=== PATIENT | female | born 1950 | race Caucasian/White ===

== ENCOUNTER 2018-01-03 07:10 | Day surgery (SDC) | payer MEDICARE, OTHER ==
[~2018-01-03] VITALS: Ht 157.5 cm; Wt 72.8 kg
[~2018-01-03 07:10] MED LIST: ASPI325EC PO; AZELASTINE137 MCG/0.; Daily Multiple1 EACH PO; ERGO50000 PO; ESOM20; GABA400 PO; LEVSOD75 PO; LIVALO4 MG PO; META800 PO; METO50ER PO; Nitrostat0.4 MG SL; VAGIFEM10 MCG VG; VALS80 PO; VITAMIN D35000 UNI1 PO
[2018-01-03] MEDS ORDERED: Aspir 8181 MG (07:41)
== END 2018-01-03 09:22 | disposition home or self-care (01) ==
LOC: ORSCSDS 07:10
PROVIDERS: Surgery
PROC: 0DB48ZX Excision of Esophagogastric Junction, Via Natural or Artificial Opening Endoscopic, Diagnostic (ICD-10-PCS; principal; 2018-01-03 08:30)
PROC: 0DB68ZX Excision of Stomach, Via Natural or Artificial Opening Endoscopic, Diagnostic (ICD-10-PCS; principal; 2018-01-03 08:30)
DX: K22.70 Barrett's esophagus without dysplasia (principal); I10 Essential (primary) hypertension; E03.9 Hypothyroidism, unspecified; E78.5 Hyperlipidemia, unspecified; I25.10 Atherosclerotic heart disease of native coronary artery without angina pectoris; J45.909 Unspecified asthma, uncomplicated; K21.9 Gastro-esophageal reflux disease without esophagitis; Z87.891 Personal history of nicotine dependence; Z79.82 Long term (current) use of aspirin; Z79.899 Other long term (current) drug therapy
CPT/HCPCS: 88305; 88342; J7120

== ENCOUNTER 2018-06-26 11:37 | Day surgery (SDC) | payer MEDICARE, OTHER ==
[~2018-06-26] VITALS: Ht 157.5 cm; Wt 70.6 kg
[~2018-06-26 11:37] MED LIST changes: +Aspir 8181 MG PO; +Flovent 44 mc10.6 GM INH; +Milk Thistle175 MG PO; +Multivitamin1 EAC1 PO; +Pepto-Bismol262 M1 PO
== END 2018-06-26 14:00 | disposition home or self-care (01) ==
LOC: ORSCSDS 11:37
PROVIDERS: Internal Medicine Gastroenterology
PROC: 0DBE8ZX Excision of Large Intestine, Via Natural or Artificial Opening Endoscopic, Diagnostic (ICD-10-PCS; principal; 2018-06-26 13:00)
DX: R19.7 Diarrhea, unspecified (principal); K64.8 Other hemorrhoids; K57.30 Diverticulosis of large intestine without perforation or abscess without bleeding; I10 Essential (primary) hypertension; E03.9 Hypothyroidism, unspecified; E78.5 Hyperlipidemia, unspecified; K21.9 Gastro-esophageal reflux disease without esophagitis; Z87.891 Personal history of nicotine dependence; Z79.899 Other long term (current) drug therapy
CPT/HCPCS: J7120

== ENCOUNTER → 2019-08-05 | Outpatient (CLI) | payer MEDICARE, OTHER ==
[2019-08-05 10:26] LABS: BASOPHILS ABSOLUTE AUTO 0.02 K/mm3 (0.00-0.23); BASOPHILS PERCENT AUTO 1 % (0-2); EOSINOPHILS ABSOLUTE AUTO 0.24 K/mm3 (0.00-0.68); EOSINOPHILS PERCENT AUTO 6 % (0-6); Hemoglobin 12.1 g/dL (11.5-16.0); IMMATURE GRAN ABSOLUTE AUTO 0.01 K/mm3 (0.00-0.10); IMMATURE GRAN PERCENT AUTO 0 % (0-1); LYMPHOCYTES ABSOLUTE AUTO 0.92 K/mm3 (0.84-5.20); LYMPHOCYTES PERCENT AUTO 21 % (21-46); MONOCYTES ABSOLUTE AUTO 0.48 K/mm3 (0.16-1.47); MONOCYTES PERCENT AUTO 11 % (4-13); Mean Corpuscular HGB 32.9 pg (26.0-34.0); Mean Corpuscular HGB Conc 34.6 g/dL (31.5-36.5); Mean Corpuscular Volume 95 fL (80-100); Mean Platelet Volume 10.1 fL (9.1-12.4); NEUTROPHILS ABSOLUTE AUTO 2.64 K/mm3 (1.96-9.15); NEUTROPHILS PERCENT AUTO 61 % (41-73); Platelet Count 158 K/mm3 (150-400); RDW Coefficient Variation 11.7 % (11.7-14.2); Red Blood Cell Count 3.68 M/mm3 (3.80-5.20); White Blood Cell Count 4.31 K/mm3 (4.00-11.30)
[2019-08-05 10:40] LABS: Alanine Aminotransfer (ALT/SGP 49 U/L (12-78); Albumin, Blood 4.5 g/dL (3.4-5.0); Albumin/Globulin Ratio 1.4 (0.8-1.8); Alk Phos 82 U/L (40-126); Anion Gap 15 mmol/L (6-16); Aspartate Aminotrans (AST/SGOT 71 U/L (12-37); Bilirubin, Total 0.5 mg/dL (0.1-1.0); Blood Urea Nitrogen 9 mg/dL (8-24); Bun/Creatinine Ratio 9.7 (12.0-20.0); CO2, Blood 23 mmol/L (21-32); Calcium, Blood 9.1 mg/dL (8.5-10.1); Chloride, Blood 95 mmol/L (98-108); Creatinine, Blood 0.93 mg/dL (0.40-1.00); Globulin, Blood 3.3 g/dL (2.2-4.0); Glomerular Filtration Rate 59 (60-); Glucose, Blood 74 mg/dL (70-99); Sodium, Blood 133 mmol/L (136-145); Total Protein, Blood 7.8 g/dL (6.4-8.2)
[2019-08-05 10:41] LABS: Troponin I <0.017 ng/mL (0.000-0.040)
== END | disposition home or self-care (01) ==
LOC: LAB EV 10:22 → LAB SHORT 10:22
PROVIDERS: Physician Assistant
DX: R55 Syncope and collapse (principal)
CPT/HCPCS: 80053; 84484; 85025

== ENCOUNTER → 2019-12-03 | Outpatient (CLI) | payer MEDICARE, OTHER | END | disposition home or self-care (01) | LOC: LAB EV 13:36 → LAB SHORT 13:36 | DX: R05 Cough (principal) | CPT/HCPCS: U0003 ==

== ENCOUNTER 2020-06-19 07:52 | Emergency (ER) | payer MEDICARE, OTHER ==
[~2020-06-19] VITALS: Ht 162.6 cm; Wt 63.5 kg
[~2020-06-19 07:52] MED LIST changes: +CAND16
[2020-06-19 08:19] LABS: BASOPHILS ABSOLUTE AUTO 0.02 K/mm3 (0.00-0.23); BASOPHILS PERCENT AUTO 0 % (0-2); EOSINOPHILS ABSOLUTE AUTO 0.06 K/mm3 (0.00-0.68); EOSINOPHILS PERCENT AUTO 1 % (0-6); Hematocrit 31.9 % (33.0-51.0); Hemoglobin 10.7 g/dL (11.5-16.0); IMMATURE GRAN ABSOLUTE AUTO 0.02 K/mm3 (0.00-0.10); IMMATURE GRAN PERCENT AUTO 0 % (0-1); LYMPHOCYTES ABSOLUTE AUTO 1.49 K/mm3 (0.84-5.20); LYMPHOCYTES PERCENT AUTO 20 % (21-46); MONOCYTES ABSOLUTE AUTO 0.72 K/mm3 (0.16-1.47); MONOCYTES PERCENT AUTO 10 % (4-13); Mean Corpuscular HGB 33.6 pg (26.0-34.0); Mean Corpuscular HGB Conc 33.5 g/dL (31.5-36.5); Mean Corpuscular Volume 100 fL (80-100); NEUTROPHILS ABSOLUTE AUTO 5.18 K/mm3 (1.96-9.15); NEUTROPHILS PERCENT AUTO 69 % (41-73); Platelet Count 166 K/mm3 (150-400); RDW Coefficient Variation 11.9 % (11.7-14.2); RDW Standard Deviation 43.8 fL (35.1-46.3); Red Blood Cell Count 3.18 M/mm3 (3.80-5.20); White Blood Cell Count 7.49 K/mm3 (4.00-11.30)
[2020-06-19 08:38] LABS: Alanine Aminotransfer (ALT/SGP 28 U/L (12-78); Albumin, Blood 3.7 g/dL (3.4-5.0); Albumin/Globulin Ratio 0.9 (0.8-1.8); Alk Phos 97 U/L (50-136); Anion Gap 9 mmol/L (6-16); Aspartate Aminotrans (AST/SGOT 44 U/L (12-37); Bilirubin, Total 0.8 mg/dL (0.1-1.0); Blood Urea Nitrogen 9 mg/dL (8-24); Bun/Creatinine Ratio 11.5 (12.0-20.0); CO2, Blood 25 mmol/L (21-32); Calcium, Blood 8.9 mg/dL (8.5-10.1); Chloride, Blood 100 mmol/L (98-108); Creatinine, Blood 0.79 mg/dL (0.40-1.00); Glomerular Filtration Rate >60 (60-); Glucose, Blood 77 mg/dL (70-99); Potassium, Blood 3.8 mmol/L (3.5-5.5); Sodium, Blood 134 mmol/L (136-145); Total Protein, Blood 7.7 g/dL (6.4-8.2); Troponin I <0.015 ng/mL (0.000-0.040)
[2020-06-19] MEDS ORDERED: Norco 5-325 Ta1 EACH PO (13:16)
== END 2020-06-19 13:29 | disposition home or self-care (01) ==
LOC: ER 07:52
PROVIDERS: Emergency Medicine
DX: R07.9 Chest pain, unspecified (principal); Z88.0 Allergy status to penicillin; Z88.6 Allergy status to analgesic agent; Z88.1 Allergy status to other antibiotic agents; Z88.8 Allergy status to other drugs, medicaments and biological substances; Z88.5 Allergy status to narcotic agent; Z88.7 Allergy status to serum and vaccine; Z79.82 Long term (current) use of aspirin; Z87.891 Personal history of nicotine dependence; Z79.899 Other long term (current) drug therapy; W01.190A Fall on same level from slipping, tripping and stumbling with subsequent striking against furniture, initial encounter
CPT/HCPCS: 36415; 71260; 80053; 84484; 85025; 93005; 93010; 96374; 96375; 96376; 99284-25; J2060; J2405; J3010; J7030; Q9967

== ENCOUNTER 2020-06-28 10:58 | Inpatient (IN) | payer MEDICARE, OTHER ==
[~2020-06-28] VITALS: Ht 157.5 cm; Wt 67.8 kg
[~2020-06-28 10:58] MED LIST changes: -CAND16; +CAND16 PO; +Norco 5-325 Ta1 EACH PO; +VITAMIN D31000 UNI1 PO; -VITAMIN D35000 UNI1 PO
[2020-06-28 11:40] LABS: BASOPHILS ABSOLUTE AUTO 0.01 K/mm3 (0.00-0.23); BASOPHILS PERCENT AUTO 0 % (0-2); EOSINOPHILS ABSOLUTE AUTO 0.04 K/mm3 (0.00-0.68); EOSINOPHILS PERCENT AUTO 1 % (0-6); Hematocrit 31.7 % (33.0-51.0); Hemoglobin 10.6 g/dL (11.5-16.0); IMMATURE GRAN ABSOLUTE AUTO 0.02 K/mm3 (0.00-0.10); IMMATURE GRAN PERCENT AUTO 0 % (0-1); LYMPHOCYTES ABSOLUTE AUTO 0.92 K/mm3 (0.84-5.20); LYMPHOCYTES PERCENT AUTO 14 % (21-46); MONOCYTES ABSOLUTE AUTO 0.69 K/mm3 (0.16-1.47); MONOCYTES PERCENT AUTO 10 % (4-13); Mean Corpuscular HGB 33.7 pg (26.0-34.0); Mean Corpuscular HGB Conc 33.4 g/dL (31.5-36.5); Mean Corpuscular Volume 101 fL (80-100); NEUTROPHILS ABSOLUTE AUTO 5.09 K/mm3 (1.96-9.15); NEUTROPHILS PERCENT AUTO 75 % (41-73); Platelet Count 186 K/mm3 (150-400); RDW Standard Deviation 43.5 fL (35.1-46.3); Red Blood Cell Count 3.15 M/mm3 (3.80-5.20); White Blood Cell Count 6.77 K/mm3 (4.00-11.30)
[2020-06-28 12:02] LABS: Alanine Aminotransfer (ALT/SGP 26 U/L (12-78); Albumin, Blood 3.7 g/dL (3.4-5.0); Albumin/Globulin Ratio 0.9 (0.8-1.8); Alk Phos 93 U/L (50-136); Anion Gap 9 mmol/L (6-16); Aspartate Aminotrans (AST/SGOT 38 U/L (12-37); Bilirubin, Total 0.5 mg/dL (0.1-1.0); Blood Urea Nitrogen 8 mg/dL (8-24); Bun/Creatinine Ratio 10.1 (12.0-20.0); CO2, Blood 24 mmol/L (21-32); Calcium, Blood 9.3 mg/dL (8.5-10.1); Chloride, Blood 102 mmol/L (98-108); Creatinine, Blood 0.79 mg/dL (0.40-1.00); Globulin, Blood 3.9 g/dL (2.2-4.0); Glomerular Filtration Rate >60 (60-); Glucose, Blood 80 mg/dL (70-99); Sodium, Blood 135 mmol/L (136-145); Total Protein, Blood 7.6 g/dL (6.4-8.2); Troponin I <0.015 ng/mL (0.000-0.040)
[2020-06-28] MEDS ORDERED: MONT10T PO (13:16)
[2020-06-28] MEDS ORDERED: ADVAIR HFA 230-28 GM INH (13:17)
[2020-06-28] MEDS ORDERED: METO50ER PO (13:18)
[2020-06-28] MEDS ORDERED: FLUTICASONE PRO16 GM (13:19)
[2020-06-28] MEDS ORDERED: IPRATROPIUM BRO30 ML (13:20)
--- NOTE | 2020-06-28 14:13 | NUR ---
Echocardiogram completed.
--- NOTE | 2020-06-28 18:06 | NUR ---
1535 RECEIVED PT TO RM 326 VIA GURNEY FROM ER. SLIDE TX TO BED D/T PAIN. PT ADMITTED FOR ATYPICAL CP. RECEIVED REPORT FROM EVANGELINA STOVER. PT HERE 8 DAYS AGO FOR SAME THING, REPORTING NOTHING MADE IT BETTER. NITRO TAKEN AT HOME WITH NO EFFECT WELL NITRO BID PLACED WITHOUT IMPROVEMENT. PT ALSO MEDICATED WITH FENTANYL WITH LITTLE TO NO EFFECT. PER REPORT FROM EVANGELINA, PT WANTING MORPHINE. TYLENOL ORDERED, BUT PT REFUSED. TROPONINS NEG TO PRESENT; MOST RECENT DRAWN NOT POSTED YET. PT RESTING QUIETLY HF, WITH AT BS. PT REQUESTED TO GO TO [facility], BUT STATED THAT WE WOULD HAVE TO CARRY HER. BSC PLACED; PT ABLE TO STAND AND PIVOT WITH 2P ASSIST. CARDIOLOGY CONSULT CALLED PER ORDERS. [facility] RECENTLY CALLED TO REPORT PT SCHEDULED FOR STRESS TEST IN AM. PT TO HAVE RESTING PART AT 0930 AND STRESS PART AT APPROX 1430 TOMORROW. PT OK TO EAT TONIGHT PER PROTOCOL, BUT PT DECLINED. ICE WATER GIVEN PER REQUEST. PT INFORMED OF PLAN OF CARE FOR TONIGHT AND TOMORROW. VERBALIZED UNDERSTANDING. DENIED FURTHER NEEDS. CALL LT IN REACH.
--- NOTE | 2020-06-28 22:44 | NUR ---
PT REQUESTING SLEEPING MEDICATION; DR GRIMES NOTIFIED WITH ORDERS MELATONIN 6MG, PO, QHS, INSOMNIA.
--- NOTE | 2020-06-29 03:52 | NUR ---
SHIFT SUMMARY: 70 Y/O FEMALE RESTED COMFORTABLY 1/2 SHIFT; PT C/O CHEST/NECK PAIN RATED 7/10 WITH MORPHINE SULPATE 2MG IVP X 2 GIVEN WITH GOOD RELIEF VOICED; PT APPEARED VERY CALM WHILE TALKING WITH THIS NURSE; TELEMETRY REFLECTS SINUS TACHYCARDIA AT 102 PER OCTOBER--PRIVATE CLIENT ADVISOR; HAPPY AND COOPERATIVE; PT VOICED SHE HAD LAST BM 1 WEEK AGO AND THAT IS NORMAL FOR HER--PT TAKING COLACE; NPO SINCE MIDNIGHT FOR HEART STRESS TEST TODAY; PTS LEGS ARE WEAK WITH PT HAVING SLIGHT DIFFICULTY [place] [facility] [place]; BED ALARM APPLIED FOR SAFETY; BED LOW POSITION WITH CALL LIGHT AT SIDE.
[2020-06-29 05:23] LABS: BASOPHILS ABSOLUTE AUTO 0.02 K/mm3 (0.00-0.23); BASOPHILS PERCENT AUTO 0 % (0-2); EOSINOPHILS ABSOLUTE AUTO 0.03 K/mm3 (0.00-0.68); EOSINOPHILS PERCENT AUTO 1 % (0-6); Hematocrit 28.6 % (33.0-51.0); Hemoglobin 9.1 g/dL (11.5-16.0); IMMATURE GRAN ABSOLUTE AUTO 0.02 K/mm3 (0.00-0.10); IMMATURE GRAN PERCENT AUTO 0 % (0-1); LYMPHOCYTES ABSOLUTE AUTO 1.19 K/mm3 (0.84-5.20); LYMPHOCYTES PERCENT AUTO 20 % (21-46); MONOCYTES PERCENT AUTO 15 % (4-13); Mean Corpuscular HGB Conc 31.8 g/dL (31.5-36.5); Mean Corpuscular Volume 101 fL (80-100); Mean Platelet Volume 9.8 fL (9.1-12.4); NEUTROPHILS ABSOLUTE AUTO 3.92 K/mm3 (1.96-9.15); NEUTROPHILS PERCENT AUTO 65 % (41-73); Platelet Count 154 K/mm3 (150-400); RDW Coefficient Variation 11.9 % (11.7-14.2); RDW Standard Deviation 44.1 fL (35.1-46.3); Red Blood Cell Count 2.84 M/mm3 (3.80-5.20); White Blood Cell Count 6.08 K/mm3 (4.00-11.30)
[2020-06-29 05:55] LABS: Anion Gap 11 mmol/L (6-16); Blood Urea Nitrogen 11 mg/dL (8-24); Bun/Creatinine Ratio 14.2 (12.0-20.0); CO2, Blood 23 mmol/L (21-32); Calcium, Blood 8.7 mg/dL (8.5-10.1); Chloride, Blood 100 mmol/L (98-108); Creatinine, Blood 0.77 mg/dL (0.40-1.00); Glomerular Filtration Rate >60 (60-); Glucose, Blood 89 mg/dL (70-99); Magnesium, Blood 1.5 mg/dL (1.6-2.4); Potassium, Blood 3.9 mmol/L (3.5-5.5); Sodium, Blood 134 mmol/L (136-145); Troponin I <0.015 ng/mL (0.000-0.040)
--- NOTE | 2020-06-29 14:32 | NUR ---
LEXISCAN COMPLETED. TOLERATED WELL. VSS.
[2020-06-29 15:27] LABS: CHOL/HDL RATIO 1.6; Cholesterol 128 mg/dL (50-200); HDL Cholesterol 81 mg/dL (>39); LDL/HDL RATIO 0.5; Low Density Lipoprotein Chol 39 mg/dL (0-110); Triglycerides 39 mg/dL (30-160); Very Low Density Lipoprot Chol 7 mg/dL (6-32)
--- NOTE | 2020-06-29 18:27 | NUR ---
SHIFT SUMMARY PT AWAKE AT START OF SHIFT, REPORTING THAT SHE DID NOT SLEEP MUCH LAST NIGHT. EVEN WITH HS MEDS ORDERED TO HELP. PT REPORTED ANXIETY AND STRESS. PT DID REPORT THAT SHE FELT BETTER TODAY THOUGH. PT HAS NOT BEEN MEDICATED FOR C/O PAIN THIS SHFIT. PT REMAINED NPO SINCE COMING TO HOSPITAL YESTERDAY. STRESS TEST STARTED THIS AM; PT ABLE TO HAVE ONE DAY PROTOCOL. DR PERES HERE TO SEE PT THIS AM, PRIOR TO PT STARTING FIRST PORTION OF TEST. PT SEEMED TO TOLERATE ALL TESTING WELL; REMAINS A LITTLE WEAK AND UNSTEADY FROM ACTIVITY TODAY. PT ABLE TO HAVE DINNER TONIGHT, ONLY WANTING SM PORTIONS. PT'S HERE FOR VISITING HRS, JUST LEAVING A FEW MINUTES AGO. PT ASSISTED TO BTHRM TO VOID; SBA ONLY. DR PERES NOTIFIED THAT PT HAD COMPLETED STRESS TEST PROTOCOL, BUT WAITING FOR RESULTS TO POST. PT TO STAY THRU THE NIGHT AND D/C TO HOME TOMORROW. PT RESTING QUIETLY, WATCHING TV. DENIED FURTHER NEEDS. CALL LT IN REACH.
--- NOTE | 2020-06-29 19:05 | NUR ---
ASSUMED CARE RECEIVED REPORT FROM JOLANTA PURI. ASSUMED CARE OF PT. PT RESTING COMFORTABLY, NO S/S ACUTE DISTRESS NOTED. RESPS E/U. DENIES NEEDS AT THIS TIME. CALL LIGHT, POSSESSIONS IN REACH, [facility].
--- NOTE | 2020-06-30 07:00 | NUR ---
SHIFT SUMMARY PT RESTING COMFORTABLY, NO S/S ACUTE DISTRESS NOTED. WAS MONITORED EVERY 1-2 HOURS WITH NEEDS MET. VS REVIEWED, WNL. PT HAD ONE EPISODE OF CHEST PRESSURE, NO FURTHER COMPLAINTS AT THIS TIME. DENIES SOB, NAUSEA. PT IN GOOD SPIRITS, HOPEFUL TO D/C HOME TODAY. CALL LIGHT, POSSESSIONS IN REACH, BED IN LOW POSITION. REPORT GIVEN TO JOLANTA PHILLIPS.
--- NOTE | 2020-06-30 09:10 | NUR ---
PT PLEASANT COOP A/O X3 TALKATIVE. QUITE AWARE OF MEDICATIONS. DENIES CHEST PAIN OR PRESURE TODAY. STATES LITE ONCE LAST NITE. NO FURTHER. H/R REG NO MURMER NOTED. PER TELE S TACH AT 108. LUNGS CLEAR RESP EASY, UNLABORED. ON R.A. BT HYPO. PT STATES R/T SPINAL NERVE INJURY, NO BM BUT ONCE WEEKLY, THIS IS NORMAL. VOIDS SBA TO BATHROOM. NO NEW CONCERHS TODAY. BED IN LOW POSITION, CALL LITE IN REACH, CALLS APPROP
[2020-06-30] MEDS ORDERED: METO25 PO (13:01)
[2020-06-30] MEDS ORDERED: BUSP5 PO (13:02)
[2020-06-30] MEDS ORDERED: ATOR40TA PO (13:02)
[2020-06-30] MEDS ORDERED: Isosorbide Mono30 MG PO (13:02)
[2020-06-30] MEDS ORDERED: MELATONIN5 M1 PO (13:03)
[2020-06-30] MEDS ORDERED: OMEP20ER PO (13:03)
[2020-06-30] MEDS ORDERED: TRAZ50 PO (13:03)
--- NOTE | 2020-06-30 14:36 | NUR ---
DISCHARGE REVIEWED WITH PT AND SPOUSE. TELE REMOVED. IV REMOVED INTACT. PT VERBALIZED UNDERSTANDING MEDS AND INST. PT WHEELED TO DOOR BY LILLIANA AKINS, AT 1430
== END 2020-06-30 14:30 | disposition home or self-care (01) | DRG 305 ==
LOC: ER 10:58 → MEDS 13:14
PROVIDERS: Physician Assistant; ADMIT Internal Medicine
DX: I11.9 Hypertensive heart disease without heart failure (principal); I43 Cardiomyopathy in diseases classified elsewhere; J45.909 Unspecified asthma, uncomplicated; Z79.82 Long term (current) use of aspirin; Z98.82 Breast implant status; Z87.891 Personal history of nicotine dependence; E89.0 Postprocedural hypothyroidism; Z98.1 Arthrodesis status; I25.10 Atherosclerotic heart disease of native coronary artery without angina pectoris; K21.9 Gastro-esophageal reflux disease without esophagitis; R00.0 Tachycardia, unspecified; G47.00 Insomnia, unspecified; F41.9 Anxiety disorder, unspecified; E78.5 Hyperlipidemia, unspecified; K76.0 Fatty (change of) liver, not elsewhere classified; S72.143D Displaced intertrochanteric fracture of unspecified femur, subsequent encounter for closed fracture with routine healing
CPT/HCPCS: 36415; 71046; 71110; 78452; 80048; 80053; 80061; 83036; 83735; 84484; 85025; 93005; 93010; 93017; 93306; 96374; 97116; 97162; 97165; 97530; 99285-25; A9270-GY; A9500; J0706; J2270; J2405; J2785; J3010; J3475

== ENCOUNTER → 2020-09-14 | Outpatient (CLI) | payer MEDICARE, OTHER ==
[~2020-09-14] MED LIST changes: +ADVAIR HFA 230-28 GM INH; +ATOR40TA PO; +BUSP5 PO; +FLUTICASONE PRO16 GM; +IPRATROPIUM BRO30 ML; +Isosorbide Mono30 MG PO; +MELATONIN5 M1 PO; +METO25 PO; +MONT10T PO; +OMEP20ER PO; +TRAZ50 PO
[2020-09-15 16:06] LABS: CORONAVIRUS (COVID19) CSH-NRL Negative (Negative)
== END | disposition home or self-care (01) ==
LOC: PLD 09:40 → LAB SHORT 09:40
PROVIDERS: Physician Assistant
DX: Z20.822 Contact with and (suspected) exposure to COVID-19 (principal)
CPT/HCPCS: U0003

== ENCOUNTER → 2021-08-19 | Outpatient (CLI) | payer MEDICARE, OTHER | LOC: LAB 13:10 → LAB SHORT 13:10 | DX: N39.0 Urinary tract infection, site not specified (principal) | CPT/HCPCS: 87077; 87086; 87186 ==

== ENCOUNTER → 2021-09-07 | Outpatient (CLI) | payer MEDICARE, OTHER ==
[2021-09-07 12:10] LABS: Source, Urine Clean Catch
[2021-09-07 13:06] LABS: Appearance, Urine Hazy (Clear); Blood, Urine 5+ (Neg); Color, Urine Amber (P-Yellow); Glucose Qualitative, Urine Neg (Neg); Ketones, Urine Neg (Neg); Leukocyte Esterase, Urine 3+ (Neg); Nitrite, Urine Pos (Neg); Protein, Urine 2+ (Neg); Specific Gravity, Urine 1.015 (1.003-1.022); Urobilinogen, Urine 2+ (Normal)
[2021-09-07 13:17] LABS: Bilirubin, Urine 2+ (Neg)
[2021-09-07 13:18] LABS: Bacteria Few /hpf; Red Blood Cells, Urine TNTC /hpf (0-2); Squamous Epithelial Cells Few /hpf (Few); Transitional Epithelial Cells Few /hpf (0-Rare); White Blood Cells, Urine TNTC /hpf (0-5)
[2021-09-07 13:19] LABS: WBC Cast 0-2 /lpf (0)
== END | disposition home or self-care (01) ==
LOC: LAB 12:07 → LAB SHORT 12:07
PROVIDERS: Nurse Practitioner Family
DX: R30.9 Painful micturition, unspecified (principal)
CPT/HCPCS: 81001; 87086

== ENCOUNTER → 2022-02-15 | Outpatient (CLI) | payer MEDICARE, OTHER | END | disposition home or self-care (01) | LOC: LAB SHORT 09:30 | DX: R30.9 Painful micturition, unspecified (principal) | CPT/HCPCS: 87077; 87086; 87186 ==

== ENCOUNTER 2022-02-21 10:48 | Day surgery (SDC) | payer MEDICARE, OTHER ==
[~2022-02-21] VITALS: Ht 157.5 cm; Wt 65.6 kg
[2022-02-21] MEDS ORDERED: AZELASTINE137 MCG/01 (11:29)
[2022-02-21] MEDS ORDERED: BISM300CH PO (11:30)
[2022-02-21] MEDS ORDERED: ESOM20 PO (11:30)
[2022-02-21] MEDS ORDERED: FERROUS GLUCON324 M7 PO (11:31)
[2022-02-21] MEDS ORDERED: LIVALO4 MG PO (11:32)
--- NOTE | 2022-02-21 11:48 | NUR ---
02/21/22 Jerry Mendoza CALL LIGHT WITHIN REACH.
--- NOTE | 2022-02-21 12:56 | NUR ---
02/21/22 1256 Yves Martino 1 MG EPI ADDED TO EACH OF THE FIRST 3 BAGS OF LR PER ORDER FOR IRRIGATION AT [facility].
--- NOTE | 2022-02-21 16:40 | NUR ---
02/21/22 JASS GUTIERREZ PT RETURNED TO FACILITY APPROX. 1545 RX WRITTEN FOR MORPHINE IR 5MG PO Q 6 HOURS WAS NOT ABLE TO BE FILLED. AFTER CALLING AROUND TO MULTIPLE PHARMACIES, AND SEVERAL CALLS TO DR. MONTEIRO OFFICE, WE WERE ABLE TO HAVE DR. CASAREZ WRITE AN RX FOR MORPHINE IR 15MG PO BID #10. INFORMED PT AND WHO WERE WAITING IN THEIR CARE FOR APPROX 50 MINTUES THAT THEY NEEDED TO GO TO OFFICE TO HOME COMFORT ADVISOR NEW RX. UNFILLABLE RX WAS DESTROYED.
== END 2022-02-21 15:15 | disposition home or self-care (01) ==
LOC: ORSCSDS 10:48
PROVIDERS: Orthopaedic Surgery
PROC: 0LQ14ZZ Repair Right Shoulder Tendon, Percutaneous Endoscopic Approach (ICD-10-PCS; principal; 2022-02-21 12:30)
PROC: 0RNJ4ZZ Release Right Shoulder Joint, Percutaneous Endoscopic Approach (ICD-10-PCS; principal; 2022-02-21 12:30)
DX: M75.111 Incomplete rotator cuff tear or rupture of right shoulder, not specified as traumatic (principal); M75.21 Bicipital tendinitis, right shoulder; M75.41 Impingement syndrome of right shoulder; M75.31 Calcific tendinitis of right shoulder; I10 Essential (primary) hypertension; I25.10 Atherosclerotic heart disease of native coronary artery without angina pectoris; J45.909 Unspecified asthma, uncomplicated; E78.5 Hyperlipidemia, unspecified; K21.9 Gastro-esophageal reflux disease without esophagitis; Z79.899 Other long term (current) drug therapy; Z79.82 Long term (current) use of aspirin
CPT/HCPCS: C1713; J0171; J1100; J2250; J2370; J2405; J2704; J3010; J7120

== ENCOUNTER 2022-05-20 08:12 | Emergency (ER) | payer MEDICARE, OTHER ==
[~2022-05-20] VITALS: Ht 157.5 cm; Wt 63.5 kg
[~2022-05-20 08:12] MED LIST changes: +AZELASTINE137 MCG/01; +BISM300CH PO; +ESOM20 PO; +FERROUS GLUCON324 M7 PO
[2022-05-20 09:43] LABS: BASOPHILS ABSOLUTE AUTO 0.02 K/mm3 (0.00-0.23); BASOPHILS PERCENT AUTO 1 % (0-2); EOSINOPHILS ABSOLUTE AUTO 0.04 K/mm3 (0.00-0.68); EOSINOPHILS PERCENT AUTO 1 % (0-6); Hemoglobin 9.9 g/dL (11.5-16.0); IMMATURE GRAN ABSOLUTE AUTO 0.01 K/mm3 (0.00-0.10); IMMATURE GRAN PERCENT AUTO 0 % (0-1); LYMPHOCYTES ABSOLUTE AUTO 1.44 K/mm3 (0.84-5.20); LYMPHOCYTES PERCENT AUTO 34 % (21-46); MONOCYTES ABSOLUTE AUTO 0.42 K/mm3 (0.16-1.47); MONOCYTES PERCENT AUTO 10 % (4-13); Mean Corpuscular HGB 33.1 pg (26.0-34.0); Mean Corpuscular HGB Conc 34.1 g/dL (31.5-36.5); Mean Corpuscular Volume 97 fL (80-100); Mean Platelet Volume 10.4 fL (9.1-12.4); NEUTROPHILS ABSOLUTE AUTO 2.26 K/mm3 (1.96-9.15); NEUTROPHILS PERCENT AUTO 54 % (41-73); Platelet Count 130 K/mm3 (150-400); RDW Coefficient Variation 15.2 % (11.7-14.2); RDW Standard Deviation 53.2 fL (35.1-46.3); Red Blood Cell Count 2.99 M/mm3 (3.80-5.20); White Blood Cell Count 4.19 K/mm3 (4.00-11.30)
[2022-05-20] MEDS ORDERED: MONDOXYNE NL100 MG PO (10:00)
[2022-05-20 10:23] LABS: Albumin/Globulin Ratio 0.9 (0.8-1.8); Bilirubin, Total 1.4 mg/dL (0.1-1.0); Bun/Creatinine Ratio 6.3 (12.0-20.0); Calcium, Blood 6.4 mg/dL (8.5-10.1); Creatinine, Blood 0.79 mg/dL (0.40-1.00); Globulin, Blood 3.2 g/dL (2.2-4.0); Magnesium, Blood 0.8 mg/dL (1.6-2.4); Potassium, Blood 2.8 mmol/L (3.5-5.5); Total Protein, Blood 6.2 g/dL (6.4-8.2)
[2022-05-20] MEDS ORDERED: MAGNESIUM OXID400 M1 PO (13:35)
[2022-05-20] MEDS ORDERED: POTCHL20ER PO (13:35)
[2022-05-20] MEDS ORDERED: CEFU250T47 PO (13:35)
== END 2022-05-20 15:23 | disposition home or self-care (01) ==
LOC: ER 08:12
PROVIDERS: Physician Assistant
DX: E87.6 Hypokalemia (principal); E83.42 Hypomagnesemia; K52.9 Noninfective gastroenteritis and colitis, unspecified; R60.0 Localized edema; N39.0 Urinary tract infection, site not specified; I10 Essential (primary) hypertension; E03.9 Hypothyroidism, unspecified; Z87.891 Personal history of nicotine dependence; Z79.899 Other long term (current) drug therapy; Z79.82 Long term (current) use of aspirin; Z88.5 Allergy status to narcotic agent; Z88.8 Allergy status to other drugs, medicaments and biological substances; Z88.3 Allergy status to other anti-infective agents; Z88.6 Allergy status to analgesic agent
CPT/HCPCS: 36415; 80053; 82330; 83690; 83735; 83880; 84484; 85025; 93005; 93010; 93970; A9270; J3475; J3480; J7030

== ENCOUNTER 2022-05-24 10:17 | Day surgery (SDC) | payer MEDICARE, OTHER ==
[~2022-05-24] VITALS: Ht 157.5 cm; Wt 65.6 kg
[~2022-05-24 10:17] MED LIST changes: +CEFU250T47 PO; +MAGNESIUM OXID400 M1 PO; +MONDOXYNE NL100 MG PO; +POTCHL20ER PO
[2022-05-24] MEDS ORDERED: FLUT1DIS5 (11:33)
[2022-05-24] MEDS ORDERED: BISM300CH (11:33)
[2022-05-24] MEDS ORDERED: FURO20 (11:35)
== END 2022-05-24 13:14 | disposition home or self-care (01) ==
LOC: ORSCSDS 10:17
PROVIDERS: Internal Medicine Gastroenterology
PROC: 0DB98ZX Excision of Duodenum, Via Natural or Artificial Opening Endoscopic, Diagnostic (ICD-10-PCS; principal; 2022-05-24 11:45)
PROC: 0DB68ZX Excision of Stomach, Via Natural or Artificial Opening Endoscopic, Diagnostic (ICD-10-PCS; principal; 2022-05-24 11:45)
PROC: 0DB58ZX Excision of Esophagus, Via Natural or Artificial Opening Endoscopic, Diagnostic (ICD-10-PCS; principal; 2022-05-24 11:45)
DX: I10 Essential (primary) hypertension (principal); K21.9 Gastro-esophageal reflux disease without esophagitis; K44.9 Diaphragmatic hernia without obstruction or gangrene; R11.11 Vomiting without nausea; J45.909 Unspecified asthma, uncomplicated; G60.9 Hereditary and idiopathic neuropathy, unspecified; Z79.82 Long term (current) use of aspirin; Z79.51 Long term (current) use of inhaled steroids; Z79.899 Other long term (current) drug therapy; Z87.891 Personal history of nicotine dependence
CPT/HCPCS: 88305; 88342; J2704; J7120

== ENCOUNTER 2023-05-14 17:32 | Emergency (ER) | payer MEDICARE, OTHER ==
[~2023-05-14] VITALS: Ht 157.5 cm; Wt 47.2 kg
[~2023-05-14 17:32] MED LIST changes: +BISM300CH; +FLUT1DIS5; +FURO20
[2023-05-14 19:22] LABS: BASOPHILS ABSOLUTE AUTO 0.02 K/mm3 (0.00-0.23); BASOPHILS PERCENT AUTO 0 % (0-2); EOSINOPHILS PERCENT AUTO 0 % (0-6); Hematocrit 31.6 % (33.0-51.0); Hemoglobin 9.8 g/dL (11.5-16.0); IMMATURE GRAN ABSOLUTE AUTO 0.04 K/mm3 (0.00-0.10); IMMATURE GRAN PERCENT AUTO 1 % (0-1); LYMPHOCYTES ABSOLUTE AUTO 0.46 K/mm3 (0.84-5.20); LYMPHOCYTES PERCENT AUTO 8 % (21-46); MONOCYTES ABSOLUTE AUTO 0.54 K/mm3 (0.16-1.47); MONOCYTES PERCENT AUTO 9 % (4-13); Mean Corpuscular HGB 37.4 pg (26.0-34.0); Mean Corpuscular Volume 121 fL (80-100); Mean Platelet Volume 10.3 fL (9.1-12.4); NEUTROPHILS ABSOLUTE AUTO 4.89 K/mm3 (1.96-9.15); NEUTROPHILS PERCENT AUTO 82 % (41-73); NRBC ABSOLUTE 0.02 K/mm3 (0.00-0.02); NRBC Auto 0.3 /100 WBC (0.0-0.2); Platelet Count 96 K/mm3 (150-400); RDW Coefficient Variation 14.5 % (11.7-14.2); RDW Standard Deviation 65.1 fL (35.1-46.3); Red Blood Cell Count 2.62 M/mm3 (3.80-5.20); White Blood Cell Count 5.95 K/mm3 (4.00-11.30)
[2023-05-14 20:06] LABS: Albumin, Blood 3.8 g/dL (3.4-5.0); Bilirubin, Total 2.8 mg/dL (0.1-1.0); Bun/Creatinine Ratio 14.3 (12.0-20.0); Calcium, Blood 8.3 mg/dL (8.5-10.1); Creatinine, Blood 0.98 mg/dL (0.40-1.00); Globulin, Blood 3.7 g/dL (2.2-4.0); Potassium, Blood 3.9 mmol/L (3.5-5.5); Total Protein, Blood 7.5 g/dL (6.4-8.2)
[2023-05-14 22:07] LABS: Magnesium, Blood 1.2 mg/dL (1.6-2.4); Phosphorus, Blood 3.9 mg/dL (2.5-4.9); Thyroid Stimulating Hormone 7.76 uIU/mL (0.360-4.800)
[2023-05-14 22:43] LABS: Influenza A, PCR NEGATIVE (NEGATIVE); Influenza B, PCR NEGATIVE (NEGATIVE); Resp Syncytial Virus, PCR NEGATIVE (NEGATIVE); SARS-Cov-2 (COVID-19) PCR, MMC NEGATIVE (NEGATIVE)
[2023-05-15 00:18] LABS: Source, Urine Clean Catch
[2023-05-15 00:41] LABS: Bilirubin, Urine Neg (Neg); Blood, Urine 1+ (Neg); Glucose Qualitative, Urine Neg (Neg); Ketones, Urine 4+ (Neg); Leukocyte Esterase, Urine 2+ (Neg); Nitrite, Urine Neg (Neg); Protein, Urine 2+ (Neg); Urobilinogen, Urine 3+ (Normal)
[2023-05-15 00:50] LABS: Appearance, Urine Hazy (Clear); Color, Urine Yellow (P-Yellow)
[2023-05-15 00:51] LABS: Hyaline Casts 0-2 /lpf (0-2); Red Blood Cells, Urine 0-2 /hpf (0-2); Squamous Epithelial Cells Few /hpf (Few); White Blood Cells, Urine 25-50 /hpf (0-5)
[2023-05-15 00:52] LABS: Bacteria Mod /hpf
[2023-05-15] MEDS ORDERED: METO5A PO (02:06)
[2023-05-15 03:37] VITALS: BP 152/108
== END 2023-05-15 03:35 | disposition home or self-care (01) ==
LOC: ER 17:32
PROVIDERS: Emergency Medicine
DX: R11.2 Nausea with vomiting, unspecified (principal); E86.0 Dehydration; N39.0 Urinary tract infection, site not specified; R53.1 Weakness; I10 Essential (primary) hypertension; E03.9 Hypothyroidism, unspecified; Z87.891 Personal history of nicotine dependence; Z11.52 Encounter for screening for COVID-19; Z79.890 Hormone replacement therapy; Z79.82 Long term (current) use of aspirin; Z79.51 Long term (current) use of inhaled steroids; Z79.899 Other long term (current) drug therapy
CPT/HCPCS: 0241U; 71046; 80053; 81001; 82947; 83690; 83735; 84100; 84443; 85025; 87077; 87086; 87186; 93005; 93010; 96361; 96365; 96366; 96375; 99284-25; A9270; J2765; J3411; J7030; J7060

== ENCOUNTER 2023-06-26 15:01 | Emergency (ER) | payer MEDICARE, OTHER ==
[~2023-06-26] VITALS: Ht 157.5 cm; Wt 52.2 kg
[~2023-06-26 15:01] MED LIST changes: +METO5A PO
[2023-06-26 16:02] LABS: BASOPHILS ABSOLUTE AUTO 0.02 K/mm3 (0.00-0.23); BASOPHILS PERCENT AUTO 0 % (0-2); EOSINOPHILS ABSOLUTE AUTO 0.01 K/mm3 (0.00-0.68); EOSINOPHILS PERCENT AUTO 0 % (0-6); Hematocrit 24.8 % (33.0-51.0); Hemoglobin 8.2 g/dL (11.5-16.0); IMMATURE GRAN ABSOLUTE AUTO 0.06 K/mm3 (0.00-0.10); IMMATURE GRAN PERCENT AUTO 1 % (0-1); LYMPHOCYTES ABSOLUTE AUTO 0.54 K/mm3 (0.84-5.20); LYMPHOCYTES PERCENT AUTO 8 % (21-46); MONOCYTES ABSOLUTE AUTO 0.35 K/mm3 (0.16-1.47); MONOCYTES PERCENT AUTO 5 % (4-13); Mean Corpuscular HGB Conc 33.1 g/dL (31.5-36.5); Mean Corpuscular Volume 106 fL (80-100); Mean Platelet Volume 10.3 fL (9.1-12.4); NEUTROPHILS ABSOLUTE AUTO 5.63 K/mm3 (1.96-9.15); NEUTROPHILS PERCENT AUTO 85 % (41-73); NRBC ABSOLUTE 0.02 K/mm3 (0.00-0.02); NRBC Auto 0.3 /100 WBC (0.0-0.2); Platelet Count 107 K/mm3 (150-400); RDW Coefficient Variation 16.8 % (11.7-14.2); RDW Standard Deviation 64.7 fL (35.1-46.3); Red Blood Cell Count 2.34 M/mm3 (3.80-5.20); White Blood Cell Count 6.61 K/mm3 (4.00-11.30)
[2023-06-26 16:31] LABS: Albumin, Blood 3.3 g/dL (3.4-5.0); Albumin/Globulin Ratio 0.9 (0.8-1.8); Bilirubin, Total 2.3 mg/dL (0.1-1.0); Bun/Creatinine Ratio 11.9 (12.0-20.0); Creatinine, Blood 0.76 mg/dL (0.40-1.00); Globulin, Blood 3.7 g/dL (2.2-4.0); Potassium, Blood 4.3 mmol/L (3.5-5.5)
[2023-06-26 17:20] VITALS: BP 112/70
[2023-06-26 22:30] LABS: Source, Urine Straight Cath
[2023-06-26 22:38] LABS: Blood, Urine 2+ (Neg); Glucose Qualitative, Urine Neg (Neg); Ketones, Urine 3+ (Neg); Leukocyte Esterase, Urine 3+ (Neg); Nitrite, Urine Neg (Neg); Protein, Urine 2+ (Neg); Specific Gravity, Urine 1.015 (1.003-1.022); Urobilinogen, Urine 2+ (Normal)
[2023-06-26 23:05] LABS: Bilirubin, Urine 1+ (Neg)
[2023-06-26 23:06] LABS: Appearance, Urine Turbid (Clear); Color, Urine Yellow (P-Yellow)
[2023-06-26 23:07] LABS: Bacteria Many /hpf; Red Blood Cells, Urine 0-2 /hpf (0-2); Squamous Epithelial Cells Not Seen /hpf (Few); White Blood Cells, Urine 25-50 /hpf (0-5)
[2023-06-26] MEDS ORDERED: BACTRIM DS TAB1 EAC1 PO (23:21)
== END 2023-06-26 23:50 | disposition home or self-care (01) ==
LOC: ER 15:01
PROVIDERS: Physician Assistant; Student in an Organized Health Care Education/Training Program
DX: N39.0 Urinary tract infection, site not specified (principal); D53.9 Nutritional anemia, unspecified; E87.1 Hypo-osmolality and hyponatremia; I10 Essential (primary) hypertension; E03.9 Hypothyroidism, unspecified; Z88.1 Allergy status to other antibiotic agents; Z88.5 Allergy status to narcotic agent; Z88.6 Allergy status to analgesic agent; Z88.8 Allergy status to other drugs, medicaments and biological substances; Z79.82 Long term (current) use of aspirin; Z79.899 Other long term (current) drug therapy; Z79.890 Hormone replacement therapy; Z87.891 Personal history of nicotine dependence
CPT/HCPCS: 71046; 80053; 81001; 83690; 85025; 87077; 87086; 87186; 93005; 93010; 96360; 99285-25; A9270

== ENCOUNTER 2023-07-09 08:47 | Inpatient (IN) | payer MEDICARE, OTHER ==
[~2023-07-09] VITALS: Ht 157.5 cm; Wt 61.9 kg
[~2023-07-09 08:47] MED LIST changes: +BACTRIM DS TAB1 EAC1 PO; -FLUT1DIS5; +FLUT1DIS5 INH
[2023-07-09 09:27] LABS: BASOPHILS ABSOLUTE AUTO 0.03 K/mm3 (0.00-0.23); BASOPHILS PERCENT AUTO 1 % (0-2); EOSINOPHILS ABSOLUTE AUTO 0.04 K/mm3 (0.00-0.68); EOSINOPHILS PERCENT AUTO 1 % (0-6); Hematocrit 24.4 % (33.0-51.0); Hemoglobin 8.3 g/dL (11.5-16.0); IMMATURE GRAN ABSOLUTE AUTO 0.08 K/mm3 (0.00-0.10); IMMATURE GRAN PERCENT AUTO 1 % (0-1); LYMPHOCYTES ABSOLUTE AUTO 1.29 K/mm3 (0.84-5.20); LYMPHOCYTES PERCENT AUTO 19 % (21-46); MONOCYTES ABSOLUTE AUTO 0.99 K/mm3 (0.16-1.47); MONOCYTES PERCENT AUTO 15 % (4-13); Mean Corpuscular Volume 100 fL (80-100); Mean Platelet Volume 9.7 fL (9.1-12.4); NEUTROPHILS ABSOLUTE AUTO 4.21 K/mm3 (1.96-9.15); NEUTROPHILS PERCENT AUTO 63 % (41-73); NRBC ABSOLUTE 0.02 K/mm3 (0.00-0.02); NRBC Auto 0.3 /100 WBC (0.0-0.2); Platelet Count 174 K/mm3 (150-400); RDW Coefficient Variation 17.3 % (11.7-14.2); RDW Standard Deviation 62.6 fL (35.1-46.3); Red Blood Cell Count 2.44 M/mm3 (3.80-5.20); White Blood Cell Count 6.64 K/mm3 (4.00-11.30)
[2023-07-09 09:55] LABS: Albumin, Blood 3.1 g/dL (3.4-5.0); Albumin/Globulin Ratio 0.8 (0.8-1.8); Bilirubin, Total 1.1 mg/dL (0.1-1.0); Bun/Creatinine Ratio 10.2 (12.0-20.0); Calcium, Blood 7.7 mg/dL (8.5-10.1); Creatinine, Blood 0.79 mg/dL (0.40-1.00); Globulin, Blood 3.7 g/dL (2.2-4.0); Total Protein, Blood 6.8 g/dL (6.4-8.2)
[2023-07-09 09:57] LABS: Potassium, Blood 2.3 mmol/L (3.5-5.5)
[2023-07-09 10:13] LABS: Source, Urine Straight Cath
[2023-07-09 10:17] LABS: Bilirubin, Urine Neg (Neg); Blood, Urine 2+ (Neg); Glucose Qualitative, Urine Neg (Neg); Ketones, Urine 1+ (Neg); Leukocyte Esterase, Urine 3+ (Neg); Nitrite, Urine Neg (Neg); Protein, Urine 2+ (Neg); Specific Gravity, Urine 1.015 (1.003-1.022); Urobilinogen, Urine 2+ (Normal)
[2023-07-09 10:24] LABS: Appearance, Urine Hazy (Clear); Color, Urine Yellow (P-Yellow); Squamous Epithelial Cells Few /hpf (Few); White Blood Cells, Urine 25-50 /hpf (0-5)
[2023-07-09 10:25] LABS: Bacteria Mod /hpf
[2023-07-09 16:13] VITALS: BP 120/66
[2023-07-09 17:31] LABS: Bun/Creatinine Ratio 12.4 (12.0-20.0); Calcium, Blood 7.2 mg/dL (8.5-10.1); Creatinine, Blood 0.81 mg/dL (0.40-1.00); Magnesium, Blood 1.3 mg/dL (1.6-2.4); Potassium, Blood 2.9 mmol/L (3.5-5.5)
--- NOTE | 2023-07-09 18:32 | NUR ---
PT IS ALERT AND ORIENTED X4. R/A DENIES CHEST PAIN AND PRESSURE. ABLE TO MAKE NEEDS KNOWN.
[2023-07-09 19:24] VITALS: BP 138/64
[2023-07-10] VITALS (12 sets, daily range): BP systolic 90–133; BP diastolic 52–88
[2023-07-10 05:14] LABS: BASOPHILS ABSOLUTE AUTO 0.02 K/mm3 (0.00-0.23); BASOPHILS PERCENT AUTO 0 % (0-2); EOSINOPHILS ABSOLUTE AUTO 0.04 K/mm3 (0.00-0.68); EOSINOPHILS PERCENT AUTO 1 % (0-6); Hematocrit 18.1 % (33.0-51.0); Hemoglobin 6.1 g/dL (11.5-16.0); IMMATURE GRAN ABSOLUTE AUTO 0.04 K/mm3 (0.00-0.10); IMMATURE GRAN PERCENT AUTO 1 % (0-1); LYMPHOCYTES ABSOLUTE AUTO 1.02 K/mm3 (0.84-5.20); LYMPHOCYTES PERCENT AUTO 18 % (21-46); MONOCYTES ABSOLUTE AUTO 0.72 K/mm3 (0.16-1.47); MONOCYTES PERCENT AUTO 13 % (4-13); Mean Corpuscular HGB 33.9 pg (26.0-34.0); Mean Corpuscular HGB Conc 33.7 g/dL (31.5-36.5); Mean Corpuscular Volume 101 fL (80-100); Mean Platelet Volume 9.8 fL (9.1-12.4); NEUTROPHILS PERCENT AUTO 67 % (41-73); Platelet Count 149 K/mm3 (150-400); RDW Coefficient Variation 17.7 % (11.7-14.2); RDW Standard Deviation 65.1 fL (35.1-46.3); White Blood Cell Count 5.64 K/mm3 (4.00-11.30)
[2023-07-10 05:38] LABS: Albumin, Blood 2.5 g/dL (3.4-5.0); Albumin/Globulin Ratio 0.9 (0.8-1.8); Bilirubin, Total 0.8 mg/dL (0.1-1.0); Bun/Creatinine Ratio 11.6 (12.0-20.0); Calcium, Blood 7.3 mg/dL (8.5-10.1); Creatinine, Blood 0.78 mg/dL (0.40-1.00); Globulin, Blood 2.7 g/dL (2.2-4.0); Magnesium, Blood 2.2 mg/dL (1.6-2.4); Potassium, Blood 3.3 mmol/L (3.5-5.5); Total Protein, Blood 5.2 g/dL (6.4-8.2)
--- NOTE | 2023-07-10 08:42 | NUR ---
SHIFT SUMMARY PT PREFERS TO BE CALLED RUSDEE SHE IS A&OX4, BUT IS FORGETFUL AND GETS CONFUSED AT TIMES. VSS ON RA. NSR @ 85 VIA TELEMETRY. DOES C/O DISCOMFORT IN HER BACK, NOTHING FOR PAIN ORDERED. ON A REGULAR DIET, BUT PT STATED SHE DIDN'T GET A MEAL TRAY FOR DINNER. REPLACED PT'S K AND MAG. HGB CAME BACK THIS MORNING AT 6.1, HCT 18.1, MD CALLED, NEW ORDER FOR 1 UNIT PRBC. PT UPSET ABOUT HER BLOOD LEVELS BEING SO LOW, AND NOT KNOWING WHY. SAYS SHE HASN'T SEEN A DOCTOR SINCE COMING INTO HOSPITAL. SHE IS INCONTINENT OF URINE, BRIEF IN PLACE. NO BM THIS SHIFT. BED ALARM SET FOR PT'S SAFETY. BED IN LOWEST POSITION, CALL LIGHT WITHIN REACH.
[2023-07-10 09:02] LABS: IMMATURE RETIC FRACTION 38.3 % (2.3-16.0); RETICULOCYTE ABSOLUTE 0.0559 M/mm3 (0.0200-0.1100); RETICULOCYTE COUNT PERCENT 3.16 % (0.50-2.50)
[2023-07-10 10:08] LABS: Percent Saturation 60.4 % (15.0-50.0)
[2023-07-10 15:20] LABS: BASOPHILS ABSOLUTE AUTO 0.01 K/mm3 (0.00-0.23); BASOPHILS PERCENT AUTO 0 % (0-2); EOSINOPHILS ABSOLUTE AUTO 0.05 K/mm3 (0.00-0.68); EOSINOPHILS PERCENT AUTO 1 % (0-6); Hematocrit 22.9 % (33.0-51.0); Hemoglobin 7.6 g/dL (11.5-16.0); IMMATURE GRAN ABSOLUTE AUTO 0.05 K/mm3 (0.00-0.10); IMMATURE GRAN PERCENT AUTO 1 % (0-1); LYMPHOCYTES ABSOLUTE AUTO 1.05 K/mm3 (0.84-5.20); LYMPHOCYTES PERCENT AUTO 17 % (21-46); MONOCYTES ABSOLUTE AUTO 0.76 K/mm3 (0.16-1.47); MONOCYTES PERCENT AUTO 13 % (4-13); Mean Corpuscular HGB 31.9 pg (26.0-34.0); Mean Corpuscular HGB Conc 33.2 g/dL (31.5-36.5); Mean Platelet Volume 9.3 fL (9.1-12.4); NEUTROPHILS ABSOLUTE AUTO 4.13 K/mm3 (1.96-9.15); NEUTROPHILS PERCENT AUTO 68 % (41-73); NRBC ABSOLUTE 0.02 K/mm3 (0.00-0.02); NRBC Auto 0.3 /100 WBC (0.0-0.2); Platelet Count 143 K/mm3 (150-400); RDW Standard Deviation 80.7 fL (35.1-46.3); Red Blood Cell Count 2.38 M/mm3 (3.80-5.20); White Blood Cell Count 6.05 K/mm3 (4.00-11.30)
[2023-07-10 15:38] LABS: Mean Corpuscular Volume 96 fL (80-100)
[2023-07-10 15:44] LABS: Bun/Creatinine Ratio 11.3 (12.0-20.0); Calcium, Blood 7.3 mg/dL (8.5-10.1); Creatinine, Blood 0.79 mg/dL (0.40-1.00); Potassium, Blood 3.7 mmol/L (3.5-5.5)
--- NOTE | 2023-07-10 16:49 | NUR ---
SHIFT SUMMARY: PT IS 73 YEAR OLD FEMALE HERE BEING TREATED FOR A UTI, ELECTROLYTE IMBALANCES, AND ANEMIA. SHE RECEIVED A BLOOD TRANSFUSION TODAY WITHOUT DIFFICULTY AND REPEAT LABS SHOWED BENEFIT WITH AN IMPROVED HBG OF 7.6, HCT 22.9, AND POTASSIUM OF 3.7. POST INFUSION PATIENT DECLINES FEELING ANY DIFFERENT/BETTER. DISCHARGE PENDING BASED ON PATIENT'S MEDICAL STABLILITY. NO SIGNS OR SYMPTOMS OF DISTRESS, CALL LIGHT WITHIN REACH, AND BED IN LOWEST POSITION. PLAN OF CARE ONGOING.
[2023-07-11 03:38] VITALS: BP 135/80
--- NOTE | 2023-07-11 05:44 | NUR ---
SHIFT SUMMARY KELIN IS A&OX4, BUT FORGETFUL AND CONFUSED AT TIMES, PLAYS IT OFF VERY WELL THOUGH. VSS ON RA, TMAX 100.8, TYLENOL ORDERED. NSR @ 67 PER TELEMETRY. NO ACUTE CHANGES OVER NOC. INCONTINENT OF BOWEL AND BLADDER, BRIEF IN PLACE. BM X1 THIS SHIFT. ATTEMPTED TO SIT IN CHAIR AT BEDSIDE, BUT WAS TOO WEAK JUST STANDING AND ASKED TO LAY BACK IN BED. BED IN LOWEST POSITION, CALL LIGHT WITHIN REACH. HOWEVER PT DOES NOT USE HER CALL LIGHT, AND DOESN'T CALL TO HAVE HER BRIEF CHANGED. FREQUENT ROUNDING.
[2023-07-11 05:52] LABS: BASOPHILS ABSOLUTE AUTO 0.03 K/mm3 (0.00-0.23); BASOPHILS PERCENT AUTO 1 % (0-2); EOSINOPHILS ABSOLUTE AUTO 0.07 K/mm3 (0.00-0.68); EOSINOPHILS PERCENT AUTO 1 % (0-6); Hematocrit 22.9 % (33.0-51.0); Hemoglobin 7.6 g/dL (11.5-16.0); IMMATURE GRAN ABSOLUTE AUTO 0.05 K/mm3 (0.00-0.10); IMMATURE GRAN PERCENT AUTO 1 % (0-1); LYMPHOCYTES ABSOLUTE AUTO 1.46 K/mm3 (0.84-5.20); LYMPHOCYTES PERCENT AUTO 27 % (21-46); MONOCYTES ABSOLUTE AUTO 0.66 K/mm3 (0.16-1.47); MONOCYTES PERCENT AUTO 12 % (4-13); Mean Corpuscular HGB 31.4 pg (26.0-34.0); Mean Corpuscular HGB Conc 33.2 g/dL (31.5-36.5); Mean Corpuscular Volume 95 fL (80-100); NEUTROPHILS ABSOLUTE AUTO 3.24 K/mm3 (1.96-9.15); NEUTROPHILS PERCENT AUTO 59 % (41-73); Platelet Count 156 K/mm3 (150-400); RDW Coefficient Variation 24.3 % (11.7-14.2); RDW Standard Deviation 83.3 fL (35.1-46.3); Red Blood Cell Count 2.42 M/mm3 (3.80-5.20); White Blood Cell Count 5.51 K/mm3 (4.00-11.30)
[2023-07-11 06:26] LABS: Bun/Creatinine Ratio 10.1 (12.0-20.0); Calcium, Blood 8.2 mg/dL (8.5-10.1); Magnesium, Blood 1.6 mg/dL (1.6-2.4); Phosphorus, Blood 2.4 mg/dL (2.5-4.9); Potassium, Blood 3.6 mmol/L (3.5-5.5)
[2023-07-11 07:36] VITALS: BP 146/78
[2023-07-11 16:10] VITALS: BP 136/76
[2023-07-11 19:05] VITALS: BP 145/73
--- NOTE | 2023-07-11 19:51 | NUR ---
SHIFT SUMMARY PT INCONTINENT DUE TO FUSION OF BACK IN THE PAST. AT BEDSIDE THROUGH THE DAY. MRI COMPLETED THIS AFTERNOON. UP TO CHAIR FOR LUNCH. CAN BE FORGETFUL. ASKING FOR APPLES FOR LUNCH TODAY AND FRIEND BROUGHT IN [employer].
[2023-07-12 03:21] VITALS: BP 133/77
[2023-07-12 06:10] LABS: BASOPHILS ABSOLUTE AUTO 0.02 K/mm3 (0.00-0.23); BASOPHILS PERCENT AUTO 0 % (0-2); EOSINOPHILS ABSOLUTE AUTO 0.07 K/mm3 (0.00-0.68); EOSINOPHILS PERCENT AUTO 1 % (0-6); Hematocrit 24.2 % (33.0-51.0); IMMATURE GRAN ABSOLUTE AUTO 0.03 K/mm3 (0.00-0.10); IMMATURE GRAN PERCENT AUTO 1 % (0-1); LYMPHOCYTES ABSOLUTE AUTO 1.26 K/mm3 (0.84-5.20); LYMPHOCYTES PERCENT AUTO 23 % (21-46); MONOCYTES ABSOLUTE AUTO 0.61 K/mm3 (0.16-1.47); MONOCYTES PERCENT AUTO 11 % (4-13); Mean Corpuscular HGB 31.6 pg (26.0-34.0); Mean Corpuscular HGB Conc 33.1 g/dL (31.5-36.5); Mean Corpuscular Volume 96 fL (80-100); Mean Platelet Volume 10.3 fL (9.1-12.4); NEUTROPHILS ABSOLUTE AUTO 3.55 K/mm3 (1.96-9.15); NEUTROPHILS PERCENT AUTO 64 % (41-73); Platelet Count 152 K/mm3 (150-400); RDW Coefficient Variation 23.9 % (11.7-14.2); RDW Standard Deviation 82.4 fL (35.1-46.3); Red Blood Cell Count 2.53 M/mm3 (3.80-5.20); White Blood Cell Count 5.54 K/mm3 (4.00-11.30)
[2023-07-12 06:32] LABS: Bun/Creatinine Ratio 10.1 (12.0-20.0); Calcium, Blood 8.4 mg/dL (8.5-10.1); Creatinine, Blood 0.99 mg/dL (0.40-1.00); Magnesium, Blood 1.2 mg/dL (1.6-2.4); Phosphorus, Blood 3.3 mg/dL (2.5-4.9); Potassium, Blood 3.8 mmol/L (3.5-5.5)
--- NOTE | 2023-07-12 06:51 | NUR ---
PATIENT IS ALERT AND ORIENTED X2. WITH IV LINE ON RIGHT UPPER ARM PATENT AND INTACT; ON TELE. NO COMPLAINTS MADE. NEEDS ATTENDED. CALL LIGHT WITHIN PATIENT'S REACCH. WILL CONITNUE TO MONITOR
[2023-07-12 07:23] VITALS: BP 144/92
[2023-07-12] MEDS ORDERED: METO50 PO (13:35)
[2023-07-12] MEDS ORDERED: MIRT15 PO (13:35)
[2023-07-12] MEDS ORDERED: PANT40 PO (13:35)
[2023-07-12] MEDS ORDERED: SULTRIDS PO (13:35)
--- NOTE | 2023-07-12 15:37 | NUR ---
DISCHARGE INSTRUCTIONS COMPLETED AND DISCUSSED WITH PT AND . SCRIPTS FAXED TO [facility]. UP IN CHAIR FOR LUNCH. REMAINS WEAK AND UNSTEADY ON FEET. TO [facility] VIA W/C.
== END 2023-07-12 15:17 | disposition home health service (06) | DRG 690 ==
LOC: ER 08:47 → ERHOLD 08:48 → MEDS 16:04 → ENPENDDIS 07-12 13:46 → MEDS 07-12 15:17
PROVIDERS: Emergency Medicine; Student in an Organized Health Care Education/Training Program; ADMIT Internal Medicine
PROC: 30233N1 Transfusion of Nonautologous Red Blood Cells into Peripheral Vein, Percutaneous Approach (ICD-10-PCS; principal; 2023-07-10)
DX: N39.0 Urinary tract infection, site not specified (principal); D62 Acute posthemorrhagic anemia; E87.6 Hypokalemia; E83.42 Hypomagnesemia; D64.9 Anemia, unspecified; I10 Essential (primary) hypertension; K22.70 Barrett's esophagus without dysplasia; K76.0 Fatty (change of) liver, not elsewhere classified; I25.10 Atherosclerotic heart disease of native coronary artery without angina pectoris; G30.9 Alzheimer's disease, unspecified; F02.80 Dementia in other diseases classified elsewhere, unspecified severity, without behavioral disturbance, psychotic disturbance, mood disturbance, and anxiety; Z66 Do not resuscitate; E89.0 Postprocedural hypothyroidism; B96.20 Unspecified Escherichia coli [E. coli] as the cause of diseases classified elsewhere; F10.90 Alcohol use, unspecified, uncomplicated; Z90.89 Acquired absence of other organs; Z98.890 Other specified postprocedural states; Z88.5 Allergy status to narcotic agent; Z88.8 Allergy status to other drugs, medicaments and biological substances; Z88.7 Allergy status to serum and vaccine; Z79.82 Long term (current) use of aspirin; Z79.899 Other long term (current) drug therapy; Z79.890 Hormone replacement therapy; Z71.41 Alcohol abuse counseling and surveillance of alcoholic
CPT/HCPCS: 51701; 70551; 80048; 80053; 81001; 82607; 82728; 82746; 83540; 83550; 83735; 84100; 84443; 85025; 85045; 86850; 86900; 86901; 86923; 93005; 93010; 96365-59; 96366-59; 96367-59; 96368; 97116; 97162; 97165; 97530; 97535; 99285-25; A9270; C1751; J0696; J3411; J3475; J3480; J7030; J7050; P9016